=== PATIENT | male | born 1950 | race Caucasian/White ===

== ENCOUNTER 2017-06-07 05:02 | Inpatient (IN) | payer BC ==
[~2017-06-07] VITALS: Ht 195.6 cm; Wt 80.4 kg
[2017-06-07 05:58] LABS: INTER. NORMALIZED RATIO 0.9
[2017-06-07 06:01] LABS: PTT 23.8 SEC (25-37)
[2017-06-07 06:03] LABS: ALBUMIN 3.3 g/dL (3.2-4.8); CHLORIDE 109 mEq/L (99-109); SODIUM 141 mEq/L (136-147)
[2017-06-07 06:05] LABS: GLUCOSE 158 mg/dL (70-99)
[2017-06-07 06:07] LABS: TOTAL BILIRUBIN 0.3 mg/dL (0.0-1.0)
[2017-06-07 06:09] LABS: ALKALINE PHOSPHATASE 89 IU/L (3-129); CREATININE 0.9 mg/dL (0.6-1.3)
[2017-06-07 06:10] LABS: UREA NITROGEN (BUN) 15 mg/dL (9-23)
[2017-06-07 06:11] LABS: AST (GOT) 49 IU/L (2-34)
[2017-06-07 06:12] LABS: TROP-I INTERPRETATION NEGATIVE; TROPONIN-I < 0.01 ng/mL (0.0-0.30)
[2017-06-07 06:12] LABS: ALT (GPT) 25 IU/L (3-49); LIPASE 33 U/L (1.0-51.0)
[2017-06-07 06:13] LABS: GFR ESTIMATE (CALCULATED) > 59 mL/min/ (58.99-99999)
[2017-06-07 06:38] LABS: HEMOGLOBIN 12.3 G/DL (12.5-16.6); MCH 31.5 PG (29.0-34.0); MCHC 33.2 G/DL (30.0-36.0); MCV 94.6 FL (86-99); PLATELET COUNT 290 K/uL (156-360); RBC DIS.WIDTH-CV 15.3 % (11.8-14.6); RBC DIS.WIDTH-SD 53.1 % (39-53); RED BLOOD COUNT 3.91 M/uL (4.00-5.50)
[2017-06-07 06:39] LABS: CARBON DIOXIDE (BICARBONATE) 26.2 MEQ/L (20-31)
[2017-06-07 07:53] LABS: MAGNESIUM 1.7 mg/dl (1.3-2.7); PHOSPHORUS 3.6 mg/dL (2.5-4.9)
[2017-06-07] MEDS ORDERED: ATENOLOL25 MG PO (07:54)
[2017-06-07] MEDS ORDERED: TRAZODONE HCL50 MG PO (07:55)
[2017-06-07] MEDS ORDERED: AMLODIPINE BESY10 MG PO (07:55)
[2017-06-07 18:00] VITALS: BP 125/70
[2017-06-07 19:50] VITALS: BP 127/67
[2017-06-08] VITALS (8 sets, daily range): BP systolic 110–146; BP diastolic 63–74
[2017-06-08 06:13] LABS: CHLORIDE 107 MEQ/L (99-109); CREATININE 0.6 MG/DL (0.6-1.3); GFR ESTIMATE (CALCULATED) > 59 mL/min/ (58.99-99999); GLUCOSE 143 mg/dL (70-99); POTASSIUM 3.8 MEQ/L (3.7-5.4); SODIUM 138 MEQ/L (136-147); UREA NITROGEN (BUN) 9 mg/dL (9-23)
[2017-06-08 06:21] LABS: HEMATOCRIT 32.2 % (38.0-50.0); MCH 30.4 PG (29.0-34.0); PLATELET COUNT 271 K/uL (156-360); RBC DIS.WIDTH-CV 14.8 % (11.8-14.6); RBC DIS.WIDTH-SD 52.1 % (39-53); RED BLOOD COUNT 3.39 M/uL (4.00-5.50); WHITE BLOOD COUNT 14.3 K/uL (4.1-10.2)
[2017-06-08 06:22] LABS: HEMOGLOBIN 10.3 G/DL (12.5-16.6)
[2017-06-09 02:54] VITALS: BP 119/66
[2017-06-09 05:50] LABS: HEMATOCRIT 34.9 % (38.0-50.0); HEMOGLOBIN 11.1 G/DL (12.5-16.6); MCH 30.6 PG (29.0-34.0); MCHC 31.8 G/DL (30.0-36.0); MCV 96.1 FL (86-99); PLATELET COUNT 265 K/uL (156-360); RBC DIS.WIDTH-CV 14.9 % (11.8-14.6); RBC DIS.WIDTH-SD 53.2 % (39-53); RED BLOOD COUNT 3.63 M/uL (4.00-5.50); WHITE BLOOD COUNT 15.5 K/uL (4.1-10.2)
[2017-06-09 06:17] LABS: CHLORIDE 108 MEQ/L (99-109); CREATININE 0.6 MG/DL (0.6-1.3); GFR ESTIMATE (CALCULATED) > 59 mL/min/ (58.99-99999); GLUCOSE 111 mg/dL (70-99); SODIUM 140 MEQ/L (136-147); UREA NITROGEN (BUN) 8 mg/dL (9-23)
[2017-06-09 08:00] VITALS: BP 116/71
[2017-06-09 12:46] VITALS: BP 99/59
[2017-06-09] MEDS ORDERED: ASPIR 8181 M1 PO (16:16)
[2017-06-09] MEDS ORDERED: TRAZODONE HCL50 MG PO ×2 (16:16)
[2017-06-09] MEDS ORDERED: ONCE DAILY1 EACH PO (16:17)
[2017-06-09 17:15] VITALS: BP 106/67
[2017-06-09 20:36] VITALS: BP 91/59
[2017-06-09 23:40] VITALS: BP 120/66
[2017-06-10 04:52] VITALS: BP 124/65
[2017-06-10 06:20] LABS: HEMATOCRIT 30.5 % (38.0-50.0); HEMOGLOBIN 9.8 G/DL (12.5-16.6); MCH 30.2 PG (29.0-34.0); MCHC 32.1 G/DL (30.0-36.0); MCV 94.1 FL (86-99); PLATELET COUNT 281 K/uL (156-360); RBC DIS.WIDTH-CV 14.7 % (11.8-14.6); RBC DIS.WIDTH-SD 51.6 % (39-53); RED BLOOD COUNT 3.24 M/uL (4.00-5.50)
[2017-06-10 06:51] LABS: CHLORIDE 112 MEQ/L (99-109); CREATININE 0.6 MG/DL (0.6-1.3); GFR ESTIMATE (CALCULATED) > 59 mL/min/ (58.99-99999); POTASSIUM 3.7 MEQ/L (3.7-5.4); SODIUM 142 MEQ/L (136-147); UREA NITROGEN (BUN) 8 mg/dL (9-23)
[2017-06-10 06:53] LABS: GLUCOSE 187 mg/dL (70-99)
[2017-06-10 09:00] VITALS: BP 103/51
[2017-06-10 11:46] VITALS: BP 118/59
[2017-06-10 15:10] VITALS: BP 108/60
[2017-06-10 20:15] VITALS: BP 118/68
[2017-06-11] VITALS (7 sets, daily range): BP systolic 14–138; BP diastolic 55–73
[2017-06-11 02:53] LABS: HEMATOCRIT 29.1 % (38.0-50.0); HEMOGLOBIN 9.7 G/DL (12.5-16.6); MCH 31.3 PG (29.0-34.0); MCHC 33.3 G/DL (30.0-36.0); MCV 93.9 FL (86-99); PLATELET COUNT 324 K/uL (156-360); RBC DIS.WIDTH-CV 14.6 % (11.8-14.6); RBC DIS.WIDTH-SD 50.7 % (39-53); WHITE BLOOD COUNT 8.7 K/uL (4.1-10.2)
[2017-06-11 03:07] LABS: CHLORIDE 111 mEq/L (99-109); POTASSIUM 3.7 mEq/L (3.7-5.4); SODIUM 141 mEq/L (136-147)
[2017-06-11 03:08] LABS: GLUCOSE 156 mg/dL (70-99)
[2017-06-11 03:12] LABS: CREATININE 0.8 mg/dL (0.6-1.3); GFR ESTIMATE (CALCULATED) > 59 mL/min/ (58.99-99999)
[2017-06-11 03:13] LABS: UREA NITROGEN (BUN) 12 mg/dL (9-23)
[2017-06-12 04:59] VITALS: BP 116/63
[2017-06-12 05:32] LABS: HEMATOCRIT 28.8 % (38.0-50.0); HEMOGLOBIN 9.4 G/DL (12.5-16.6); MCH 30.3 PG (29.0-34.0); MCHC 32.6 G/DL (30.0-36.0); MCV 92.9 FL (86-99); PLATELET COUNT 311 K/uL (156-360); RBC DIS.WIDTH-CV 14.8 % (11.8-14.6); RBC DIS.WIDTH-SD 51.3 % (39-53); WHITE BLOOD COUNT 7.5 K/uL (4.1-10.2)
[2017-06-12 05:53] LABS: CHLORIDE 111 MEQ/L (99-109); CREATININE 0.9 MG/DL (0.6-1.3); GFR ESTIMATE (CALCULATED) > 59 mL/min/ (58.99-99999); GLUCOSE 146 mg/dL (70-99); POTASSIUM 3.4 MEQ/L (3.7-5.4); SODIUM 143 MEQ/L (136-147); UREA NITROGEN (BUN) 16 mg/dL (9-23)
[2017-06-12 08:24] VITALS: BP 118/69
[2017-06-12 11:07] VITALS: BP 111/55
[2017-06-12 15:09] VITALS: BP 115/64
[2017-06-12 20:33] VITALS: BP 114/64
[2017-06-12 22:52] VITALS: BP 120/68
[2017-06-13 06:33] LABS: HEMATOCRIT 32.7 % (38.0-50.0); HEMOGLOBIN 10.5 G/DL (12.5-16.6); MCH 29.8 PG (29.0-34.0); MCHC 32.1 G/DL (30.0-36.0); MCV 92.9 FL (86-99); PLATELET COUNT 372 K/uL (156-360); RBC DIS.WIDTH-CV 14.7 % (11.8-14.6); RBC DIS.WIDTH-SD 50.4 % (39-53); RED BLOOD COUNT 3.52 M/uL (4.00-5.50)
[2017-06-13 06:59] LABS: CHLORIDE 109 MEQ/L (99-109); CREATININE 0.9 MG/DL (0.6-1.3); GFR ESTIMATE (CALCULATED) > 59 mL/min/ (58.99-99999); GLUCOSE 113 mg/dL (70-99); POTASSIUM 3.5 MEQ/L (3.7-5.4); SODIUM 143 MEQ/L (136-147); UREA NITROGEN (BUN) 19 mg/dL (9-23)
[2017-06-13 07:05] VITALS: BP 118/61
[2017-06-13 16:10] VITALS: BP 111/53
[2017-06-13 23:15] VITALS: BP 112/58
[2017-06-14 06:11] LABS: HEMATOCRIT 30.5 % (38.0-50.0); HEMOGLOBIN 9.7 G/DL (12.5-16.6); MCH 29.3 PG (29.0-34.0); MCHC 31.8 G/DL (30.0-36.0); MCV 92.1 FL (86-99); PLATELET COUNT 358 K/uL (156-360); RBC DIS.WIDTH-CV 14.6 % (11.8-14.6); RBC DIS.WIDTH-SD 49.4 % (39-53); RED BLOOD COUNT 3.31 M/uL (4.00-5.50); WHITE BLOOD COUNT 9.1 K/uL (4.1-10.2)
[2017-06-14 06:41] LABS: CHLORIDE 105 MEQ/L (99-109); GFR ESTIMATE (CALCULATED) > 59 mL/min/ (58.99-99999); GLUCOSE 86 mg/dL (70-99); POTASSIUM 3.5 MEQ/L (3.7-5.4); SODIUM 138 MEQ/L (136-147); UREA NITROGEN (BUN) 21 mg/dL (9-23)
[2017-06-14 06:45] VITALS: BP 128/68
[2017-06-14] MEDS ORDERED: SPIRIVA RESPIMAT4 GM IH (14:50)
[2017-06-14] MEDS ORDERED: NIFEREX-150,FE150 MG PO (14:50)
[2017-06-14] MEDS ORDERED: PANTOPRAZOLE SO40 MG PO (14:50)
[2017-06-14] MEDS ORDERED: METRONIDAZOLE500 MG PO (14:50)
[2017-06-14] MEDS ORDERED: AMOXICILLIN500 MG PO (14:50)
== END 2017-06-14 16:06 | disposition home health service (06) | DRG 326 ==
LOC: EME → EDBD 05:02 → EME 08:09 → SDC 08:09 → ENRESERV 10:48 → 5EAST 12:01 → 2SOUTH 12:01 → 4EAST 12:01 → ENRESERV 15:14 → 4EAST 16:47 → CANRESERV 06-12 → ENRESERV 06-12 → 4EAST 06-12 15:34 → ENRESERV 06-12 19:27 → 5EAST 06-12 20:29
PROVIDERS: Emergency Medicine; Surgery
DX: C16.2 Malignant neoplasm of body of stomach (principal); K65.0 Generalized (acute) peritonitis; J96.01 Acute respiratory failure with hypoxia; J18.9 Pneumonia, unspecified organism; K25.5 Chronic or unspecified gastric ulcer with perforation; C77.2 Secondary and unspecified malignant neoplasm of intra-abdominal lymph nodes; J90 Pleural effusion, not elsewhere classified; J98.11 Atelectasis; T17.590A Other foreign object in bronchus causing asphyxiation, initial encounter; Q43.3 Congenital malformations of intestinal fixation; I10 Essential (primary) hypertension; F41.9 Anxiety disorder, unspecified; F17.210 Nicotine dependence, cigarettes, uncomplicated; F10.10 Alcohol abuse, uncomplicated; G47.30 Sleep apnea, unspecified; J43.9 Emphysema, unspecified; K76.0 Fatty (change of) liver, not elsewhere classified; K29.60 Other gastritis without bleeding; B96.81 Helicobacter pylori [H. pylori] as the cause of diseases classified elsewhere; G47.00 Insomnia, unspecified; D63.0 Anemia in neoplastic disease; Z87.11 Personal history of peptic ulcer disease; Z79.82 Long term (current) use of aspirin
CPT/HCPCS: 71045; 71046; 71275; 74150; 74177; 80048; 80053; 80202; 82140; 82803; 83605; 83690; 83735; 83880; 84100; 84484; 85027; 85610; 85730; 86850; 86900; 86901; 87040; 87070; 87075; 87205; 87801; 88309; 88331; 88342 TC; 93005; 94010; 94640; 94640 76; 94799; 97530 GO; 99202; 99281; 99285; A6214; C9113; J0330; J0744; J1100; J1170; J1450; J1650; J2060; J2270; J2405; J2543; J2710; J2920; J3010; J3370; J3411; J7030; J7050; J7120; J7512; P9045; S0030